=== PATIENT | male | born 1960 | race Caucasian/White ===

== ENCOUNTER 2022-12-14 01:28 | Inpatient (IN) | payer BC, OTHER, SELFPAY ==
[2022-12-14 01:41] VITALS: BP 142/70; PULSE 101; RESP 22; TEMP 36.6; O2SAT 96; BMI 40.2
--- NOTE | 2022-12-14 01:52 | ED_ITS ---
HPI - General Adult General Chief complaint: Unspecified Complaint, Adult Stated complaint: was told he is in kidney failure Time Seen by Provider: 12/14/22 01:52 History of Present Illness HPI narrative: pt just got called by PCP from yesterdays visit and told to go to ER for kidney failure. pt creat 8.03, K 5 .9. labs printed from [employer] account . pt states hes been having trouble with inctont/trouble going, swelling ankles , SOB for a while, denies CP. 61-year-old man presenting to the emergency department after being contacted middle the night by on-call provider due to labs drawn yesterday noting a creatinine of 8. Apparently this is a marked change from baseline. Potassium was also noted to be little elevated at 5.9 and hemoglobin has been drifting down and now at 9.9. Pending colonoscopy. His noted to be having some urinary incontinence in the setting of BPH. Had been experiencing some orthopnea and had an echocardiogram that apparently showed some left ventricular enlargement and an EF of 40% diagnosed with systolic heart failure and initiated on losartan and carvedilol. He is not yet picked up these prescriptions though. He was also to begin Flomax for BPH. He has not had any fever. I note him to be somewhat tachypneic and labored but apparently this is relatively chronic. Does have lower extremity edema but this is rather chronic. No noted weight changes. Is not having any chest pain. Does continue to smoke. Suspected COPD. Sounds like not formally diagnosed nor treated. Related Data Home Medications Medication Instructions Recorded Confirmed alfuzosin 10 mg tablet,extended 10 mg PO DAILY 12/14/22 12/14/22 release 24 hr aspirin 81 mg tablet,delayed 81 mg PO DAILY 12/14/22 12/14/22 release atorvastatin 20 mg tablet 20 mg PO QPM 12/14/22 12/14/22 cetirizine 10 mg tablet 10 mg PO DAILY 12/14/22 12/14/22 cholecalciferol (vitamin D3) 1,250 1,250 mcg PO 2XW 12/14/22 12/14/22 mcg (50,000 unit) capsule metformin 1,000 mg tablet 1,000 mg PO BID 12/14/22 12/14/22 Allergies Allergy/AdvReac Type Severity Reaction Status Date / Time No Known Drug Allergies Allergy Verified 12/14/22 01:46 Review of Systems Status of ROS: Reports: 6 or more systems reviewed and unremarkable except as noted in History and below [facility] Medical History Adenomatous colon polyp ?D12.6 - Benign neoplasm of colon, unspecified (ICD-10) Type 2 diabetes mellitus ?E11.9 - Type 2 diabetes mellitus without complications (ICD-10) Basal cell carcinoma (BCC) of eyebrow ?C44.319 - Basal cell carcinoma of skin of other parts of face (ICD-10) Social History Smoking Status: Current every day smoker What tobacco products do you use: cigarettes Smoking packs per day: 1 Smoking cigarettes per day: 20.0 Do you use any of these nicotine containing products: None How often do you have a drink containing alcohol: never AUDIT-C Alcohol total score: 0 Non-prescribed substance use: denies use Exam Narrative: Exam Narrative: Pleasant. Energetic. Edentulous. Large newman. Mildly labored and tachypneic. Easily conversant though. Lungs with diffuse trace end-expiratory wheezing. Heart in an elevated rate and regular rhythm. Distant. Abdomen is protuberant soft. There is in the mid abdomen where it sounds like there was a hernia repair, there is mildly tender noninflamed racquetball area sized subtle swelling. He is also little uncomfortable across the mid lower abdomen. No peritoneal signs. Other surgical evidence includes absence of umbilicus. Lower extremities with diffuse nearly 2+ pitting edema. Const: Vital Signs, click to edit/add: Vital Signs - 24 hr 12/14/22 01:41 12/14/22 02:02 12/14/22 03:29 Temperature 97.9 F Pulse Rate 97 94 Pulse Rate [Left P ulse Oximeter] 101 H Respiratory Rate 22 20 20 Blood Pressure 138/79 146/83 H Blood Pressure [Ri ght Upper Arm] 142/70 H Pulse Oximetry 96 94 96 Oxygen Delivery Me thod Room Air Documenting provider has reviewed patient's vital signs: yes Course Vital Signs Vital signs: Initial Vital Signs Temperature 97.9 F 12/14/22 01:41 Temperature Source Temporal Artery Scan 12/14/22 01:41 Pulse Rate 101 H 12/14/22 01:41 Respiratory Rate 22 12/14/22 01:41 Blood Pressure 142/70 H 12/14/22 01:41 Blood Pressure Mean 94 12/14/22 01:41 Blood Pressure Position Sitting 12/14/22 01:41 Pulse Oximetry 96 12/14/22 01:41 Oxygen Delivery Method Room Air 12/14/22 01:41 Vital Signs Temperature 97.9 F 12/14/22 01:41 Pulse Rate 101 H 12/14/22 01:41 Respiratory Rate 22 12/14/22 01:41 Blood Pressure 142/70 H 12/14/22 01:41 Pulse Oximetry 96 12/14/22 01:41 Oxygen Delivery Method Room Air 12/14/22 01:41 Temperature 97.9 F 12/14/22 01:41 Pulse Rate 94 12/14/22 03:29 Respiratory Rate 20 12/14/22 03:29 Blood Pressure 146/83 H 12/14/22 03:29 Pulse Oximetry 96 12/14/22 03:29 Oxygen Delivery Method Room Air 12/14/22 01:41 Medical Decision Making MDM Narrative Medical decision making narrative: Does appear to have some degree of heart failure exacerbation. I think it would be prudent to repeat these labs from yesterday. It sounds as though there might be some urinary obstruction with perhaps overflow incontinence. I wonder if this is backing up contributing to renal failure. I am unsure at this time what his baseline creatinine has been. It looks also like would benefit from some diuresis. I requested a bladder scan which reported more than 999 mL. Hendrickson pending. Coude placed. Indeed urine out so far is 3300 mL as of approximately 3:00 a.m.. Chest x-ray reviewed by me appears to show some mild cardiomegaly and some interstitial edema. Labs with potassium of 5.4, phosphorus 7.3, creatinine 8.7, proBNP of 9640, hemoglobin 9.7 I do not see corresponding EKG changes. Obtaining records shows a creatinine on September 26 of 2.7 and 1 year ago creatinine was 1.1 He is making urine. I requested admission from our hospitalist overnight. Thankfully accepting. Noting some low abdominal sharp cramping pain. Ordering Flomax and morphine. Lab Data Lab results reviewed: Yes I reviewed the patient's lab results Labs: Lab Results 08/24/23 08/24/23 Range/Units 02:18 02:50 WBC 4.66 (4.50-11.00) K/uL RBC 3.48 L (4.30-5.90) m/uL Hgb 9.7 L (13.5-17.5) gm/dL Hct 30.9 L (37.0-53.0) % MCV 89 (80-100) fL MCH 28 (26-34) pg MCHC 31 L (32-36) gm/dL RDW Coeff of Layla 14.2 (11.5-15.5) % Plt Count 166 (140-440) K/uL Neut % (Auto) 67.0 (42.0-72.0) % Lymph % (Auto) 19.1 L (20-44) % Cuming % (Auto) 8.6 (0.0-11.0) % Eos % (Auto) 4.7 (0.0-7.0) % Baso % (Auto) 0.4 (0.0-3.0) % Neut # (Auto) 3.12 (1.7-7.0) K/uL Lymph # (Auto) 0.90 (0.90-2.90) K/uL Cuming # (Auto) 0.40 (0.00-0.90) K/UL Eos # (Auto) 0.22 (0.00-0.50) K/uL Baso # (Auto) 0.02 (0.00-0.30) K/uL Abs Immat Gran (auto) 0.01 (0.00-0.30) K/uL Imm/Tot Granulo (auto) 0.2 % D-Dimer Quant (PE/DVT) 0.50 (0.00-0.50) ug/ml VBG pH 7.289 L (7.32-7.43) VBG pCO2 40 (40-50) mmHG VBG pO2 34.2 (25-47) mmHG VBG HCO3 19 L (21-28) mmol/L Sodium 141 (135-149) mmol/L Potassium 5.4 H (3.6-5.1) mmol/L Chloride 113 (96-114) mmol/L Carbon Dioxide 17 L (20-32) mmol/L Anion Gap 11 (7-15) mEq/L BUN 80 H (7-30) mg/dL Creatinine 8.7 H (0.5-1.5) mg/dL Estimated Creat Clear 8.80 Estimated GFR 6 ml/min Glucose 104 (60-115) mg/dL Calcium 10.2 (8.4-10.6) mg/dL Phosphorus 7.3 H* (2.5-4.5) mg/dL Magnesium 2.1 (1.5-2.6) mg/dL Total Bilirubin 0.5 (0.1-1.5) mg/dL Direct Bilirubin 0.3 (0.0-0.5) mg/dL AST 15 (12-35) U/L ALT 12 (4-50) U/L Alkaline Phosphatase 63 (40-150) U/L Troponin I 0.03 (0.01-0.04) ng/mL C-Reactive Protein 1.8 H (0.5-1.0) mg/dL NT-Pro-B Natriuret Pep 9640 pg/mL Total Protein 6.4 (6.0-8.3) g/dL Albumin 3.7 (3.3-5.0) g/dL TSH 2.050 (0.270-4.20) uIU/mL Urine Color Yellow (Yellow) Urine Appearance Clear (Clear) Urine pH 6.0 (5.0-8.5) Ur Specific [place] 1.010 (1.000-1.030) Urine Protein 1+ A (Negative) Urine Glucose (UA) Negative (Negative) Urine Ketones Negative (Negative) Urine Blood Negative (Negative) Urine Nitrite Negative (Negative) Urine Bilirubin Negative (Negative) Urine Urobilinogen 0.2 (0.2-1.0) Ur Leukocyte Esterase Negative (Negative) Urine RBC 0-2 (0-2) Urine WBC 2-5 (0-5) Ur Squamous Epith Cells Few (None-Few) Urine Bacteria Few A (None) Urine Opiates Screen Negative (Negative) Ur Oxycodone Screen Negative (Negative) Urine Methadone Screen Negative (Negative) Ur Propoxyphene Screen Negative (Negative) Ur Barbiturates Screen Negative (Negative) U Tricyclic Antidepress Negative (Negative) Ur Phencyclidine Scrn Negative (Negative) Ur Amphetamines Screen Negative (Negative) U Methamphetamines Scrn Negative (Negative) U Benzodiazepines Scrn Negative (Negative) Urine Cocaine Screen Negative (Negative) U Marijuana (THC) Screen Negative (Negative) Ur Drug Screen Comment See Note ECG Data Attestation: I personally reviewed and interpreted this ECG as follows: (EKG with perhaps a junctional rhythm. Rate of 99. No acute ischemic changes. T- wave looks to be normal certainly not enhanced. ) Discharge Plan Discharge Clinical Impression: Heart failure, Acute renal failure due to urinary obstruction Patient Disposition: Admitted As Observation Condition: Stable
[2022-12-14 02:02] VITALS: BP 138/79; PULSE 97; RESP 20; O2SAT 94
--- NOTE | 2022-12-14 02:10 | CRLHL7_ITS ---
For Patients: As a result of the Century Cures Act, medical imaging exams and procedure reports are released immediately into your electronic medical record. You may view this report before your referring provider. If you have questions, please contact your health care provider. INDICATION: Dyspnea. TECHNIQUE: Chest 1 view. COMPARISON: None. FINDINGS: Cardiovascular and mediastinum: Heart size and vasculature are normal in caliber and appearance. Lungs and pleural spaces: Central perihilar interstitial opacities, likely representing mild interstitial edema. No pleural effusions or pneumothorax. Bones and soft tissues: No significant findings. IMPRESSION: Mild interstitial edema. Dictated by Joe Zamarripa MD @ 12/14/2022 2:57:57 AM (Electronically Signed)
[2022-12-14 02:22] LABS: HCO3 VBG 19 mmol/L (21-28); PCO2 VBG 40 mmHG (40-50); PO2 VBG 34.2 mmHG (25-47); pH VBG 7.289 (7.32-7.43)
[2022-12-14 02:25] LABS: Basophils Absolute Auto 0.02 K/uL (0.00-0.30); Basophils Percent Auto 0.4 % (0.0-3.0); Eosinophils Absolute Auto 0.22 K/uL (0.00-0.50); Eosinophils Percent Auto 4.7 % (0.0-7.0); Hematocrit 30.9 % (37.0-53.0); Hemoglobin* 9.7 gm/dL (13.5-17.5); Immature Granulocytes Abs Auto 0.01 K/uL (0.00-0.30); Immature Granulocytes Pct Auto 0.2 %; Lymphocytes Percent Auto 19.1 % (20-44); Mean Corpuscular HGB Conc 31 gm/dL (32-36); Mean Corpuscular Hemoglobin 28 pg (26-34); Mean Corpuscular Volume 89 fL (80-100); Monocytes Percent Auto 8.6 % (0.0-11.0); Neutrophils Absolute Auto 3.12 K/uL (1.7-7.0); Platelet Count* 166 K/uL (140-440); RDW Coefficient of Variation % 14.2 % (11.5-15.5); Red Blood Count 3.48 m/uL (4.30-5.90); White Blood Count* 4.66 K/uL (4.50-11.00)
[2022-12-14 02:27] LABS: Slide Review Reflex No
[2022-12-14 02:39] LABS: Albumin* 3.7 g/dL (3.3-5.0); Chloride* 113 mmol/L (96-114); Sodium* 141 mmol/L (135-149)
[2022-12-14 02:40] LABS: Potassium* 5.4 mmol/L (3.6-5.1)
[2022-12-14 02:41] LABS: Creatinine* 8.7 mg/dL (0.5-1.5); Estimated Glomerular Filt Rate 6 ml/min
[2022-12-14 02:42] LABS: Alanine Aminotransferase* 12 U/L (4-50); Alkaline Phosphatase* 63 U/L (40-150); Anion Gap 11 mEq/L (7-15); Aspartate Amino Transferase* 15 U/L (12-35); Bilirubin Direct* 0.3 mg/dL (0.0-0.5); Bilirubin Total* 0.5 mg/dL (0.1-1.5); Blood Urea Nitrogen* 80 mg/dL (7-30); Carbon Dioxide* 17 mmol/L (20-32); Glucose* 104 mg/dL (60-115); Total Protein* 6.4 g/dL (6.0-8.3)
[2022-12-14 02:43] LABS: Calcium* 10.2 mg/dL (8.4-10.6); Magnesium* 2.1 mg/dL (1.5-2.6)
[2022-12-14 02:45] LABS: C Reactive Protein* 1.8 mg/dL (0.5-1.0)
[2022-12-14 02:49] LABS: Phosphorus* 7.3 mg/dL (2.5-4.5)
[2022-12-14 02:54] LABS: Appearance Urine Clear (Clear); Bilirubin Urine Negative (Negative); Blood Urine Negative (Negative); Color Urine Yellow (Yellow); Glucose Urine Negative (Negative); Ketones Urine Negative (Negative); Leukocyte Esterase Urine Negative (Negative); Nitrite Urine Negative (Negative); Protein Urine 1+ (Negative); Urobilinogen Urine 0.2 (0.2-1.0)
[2022-12-14 02:54] LABS: Troponin I* 0.03 ng/mL (0.01-0.04)
[2022-12-14 02:57] LABS: NT Pro B Type NatriureticPept* 9640 pg/mL
[2022-12-14 03:00] LABS: Bacteria Urine Few; RBC Urine 0-2 (0-2); Squamous Epithelial Cell Urine Few (None-Few)
[2022-12-14 03:03] LABS: Amphetamine Screen Urine Negative (Negative); Barbiturate Screen Urine Negative (Negative); Benzodiazepines Screen Urine Negative (Negative); Cannabinoid Screen Urine Negative (Negative); Cocaine Screen Urine Negative (Negative); Methadone Screen Urine Negative (Negative); Methamphetamines Screen Urine Negative (Negative); Opiate Screen Urine Negative (Negative); Oxycodone Screen Urine Negative (Negative); Phencyclidine Screen Urine Negative (Negative); Tricyclic Antidepressant Urine Negative (Negative)
[2022-12-14 03:29] VITALS: BP 146/83; PULSE 94; RESP 20; O2SAT 96
[2022-12-14] MEDS: TAMSULOSIN HCL 0.4 MG CAPSULE PO (03:50)
[2022-12-14] MEDS: MORPHINE 4 MG/ML INJ IVP (03:50)
--- NOTE | 2022-12-14 04:06 | ED.NURSE ---
report to ms rn, pt states pain relief and drowsiness post morphine, pt transferred via bed to room 258.
[2022-12-14 04:16] VITALS: BP 136/97; PULSE 103; RESP 22; TEMP 36.7; O2SAT 99; BMI 37.9
--- NOTE | 2022-12-14 04:26 | P.IMCN_ITS ---
Date of Consult Consult date: 12/14/22 Primary Care Provider: Tino Morales MD Consult Narrative Narrative: Wei Sawyer is a 61 year old male [facility] Medical History Adenomatous colon polyp ?D12.6 - Benign neoplasm of colon, unspecified (ICD-10) Type 2 diabetes mellitus ?E11.9 - Type 2 diabetes mellitus without complications (ICD-10) Basal cell carcinoma (BCC) of eyebrow ?C44.319 - Basal cell carcinoma of skin of other parts of face (ICD-10) Social History Smoking Status: Current every day smoker What tobacco products do you use: cigarettes Smoking packs per day: 1 Smoking cigarettes per day: 20.0 Do you use any of these nicotine containing products: None How often do you have a drink containing alcohol: never AUDIT-C Alcohol total score: 0 Non-prescribed substance use: denies use Meds Home Medications and Allergies Home Medications Medication Instructions Recorded Confirmed Type alfuzosin 10 mg tablet,extended 10 mg PO DAILY 12/14/22 12/14/22 History release 24 hr aspirin 81 mg tablet,delayed 81 mg PO DAILY 12/14/22 12/14/22 History release atorvastatin 20 mg tablet 20 mg PO QPM 12/14/22 12/14/22 History cetirizine 10 mg tablet 10 mg PO DAILY 12/14/22 12/14/22 History cholecalciferol (vitamin D3) 1,250 1,250 mcg PO 2XW 12/14/22 12/14/22 History mcg (50,000 unit) capsule metformin 1,000 mg tablet 1,000 mg PO BID 12/14/22 12/14/22 History Allergies Allergy/AdvReac Type Severity Reaction Status Date / Time No Known Drug Allergies Allergy Verified 12/14/22 01:46 Exam Const: Vital Signs, click to edit/add: Vital Signs - 24 hr 12/14/22 01:41 12/14/22 02:02 12/14/22 03:29 Temperature 97.9 F Pulse Rate 97 94 Pulse Rate [Left P ulse Oximeter] 101 H Respiratory Rate 22 20 20 Blood Pressure 138/79 146/83 H Blood Pressure [Ri ght Upper Arm] 142/70 H Pulse Oximetry 96 94 96 Oxygen Delivery Me thod Room Air Labs Labs: Short CBC 12/14/22 Range/Units 02:18 WBC 4.66 (4.50-11.00) K/uL Hgb 9.7 L (13.5-17.5) gm/dL Hct 30.9 L (37.0-53.0) % Plt Count 166 (140-440) K/uL BMP 12/14/22 02:18 Sodium 141 Potassium 5.4 H Chloride 113 Carbon Dioxide 17 L BUN 80 H Creatinine 8.7 H Glucose 104 Calcium 10.2 Cardiac Enzymes 12/14/22 Range/Units 02:18 Troponin I 0.03 (0.01-0.04) ng/mL Liver Function 12/14/22 Range/Units 02:18 Total Bilirubin 0.5 (0.1-1.5) mg/dL Direct Bilirubin 0.3 (0.0-0.5) mg/dL AST 15 (12-35) U/L ALT 12 (4-50) U/L Alkaline Phosphatase 63 (40-150) U/L Albumin 3.7 (3.3-5.0) g/dL Urine 12/14/22 Range/Units 02:50 Urine Color Yellow (Yellow) Urine Appearance Clear (Clear) Urine pH 6.0 (5.0-8.5) Ur Specific [place] 1.010 (1.000-1.030) Urine Protein 1+ A (Negative) Urine Glucose (UA) Negative (Negative) Assessment and Plan Assessment and plan (1) Acute renal failure due to urinary obstruction: Status: Acute Plan [facility] Hospitalist CONSULTATION NOTE: Reason for consult: Urinary retention, acute kidney injury HPI: Patient is a pleasant 61-year-old male who was seen in clinic earlier today and then notified at around 1 AM this morning to present to the ER for critical creatinine. He has been having trouble peeing for probably the last month or so but especially over the last week and a half. He does have some pain when he does urinate. He has not had fevers or chills. He has not noticed any blood in his urine. He has had some lower pelvic and abdominal pain at times. He denies any nausea or vomiting. He has had constipation but no diarrhea. He has not had any chest pain or shortness of breath. Denies any headaches or lightheadedness. Patient is an active smoker smoking about a pack a day. He does drink alcohol but has not been drinking recently. He will use marijuana on occasion but no other recreational drugs. We discussed CODE STATUS and he wishes to be a full code. Exam (performed via interactive video with assistance of bedside nurse): General: Alert, cooperative, no acute distress HEENT: Pupils reported ERRL, oral mucosa pink and moist without erythema Lungs: Clear to auscultation bilaterally without crackle or wheeze CV: Regular rate and rhythm without loud murmur rub or gallop Abd: Denies tenderness and does not exhibit signs of pain with palpation done by bedside nurse Ext: +3 pitting edema bilateral lower extremities Skin: No rashes, bruises or lesions appreciated on gross visualization of exposed skin Past medical, surgical and social history reviewed in EMR. Assessment and Plan: 1. Obstructive uropathy Patient is a pleasant 61-year-old male admitted for obstructive uropathy. He had quite a acute kidney injury secondary to this. Hendrickson was placed which we will continue. We will recheck his labs later on this morning. If his creatinine is not responding to Hendrickson and fluids he received in the ER, then a transfer to higher level of care could be considered. He will also need urology consultation as an outpatient regardless. As needed medications have been placed for pain and nausea. His chronic outpatient medications will be restarted as appropriate when fully verified. Heparin is placed for DVT prophylaxis. Patient is a full code. Thank you for including Tom Mckeon in the patients care. This service is available for further assistance as requested by your care team by calling [phone].
--- NOTE | 2022-12-14 05:36 | PC.NURSE ---
Pt arrived to unit approx 0410, admission completed, herrera in place, patent and draining, hematuria present with small clots. Pt denies any pain, does acknowledge some discomfort to lower abdomen. Pt states approx 1 month hx of SOB at rest and with activity and difficulty urinating, pleasant and cooperative, pt currently sleeping.
[2022-12-14] MEDS: ACETAMINOPHEN 325 MG TABLET PO (06:41)
[2022-12-14] MEDS: LORazepam 0.5 MG TABLET PO (06:41)
[2022-12-14 07:00] VITALS: BP 157/81; PULSE 100; RESP 22; TEMP 35.7; O2SAT 94
--- NOTE | 2022-12-14 07:47 | CRLHL7_ITS ---
For Patients: As a result of the 21st Century Cures Act, medical imaging exams and procedure reports are released immediately into your electronic medical record. You may view this report before your referring provider. If you have questions, please contact your health care provider. INDICATION: Acute renal failure. Urinary obstruction. Heart failure appearance COMPARISON: An abdomen and pelvis CT dated September 28, 2018. There are no prior chest CT TECHNIQUE: CT examination of the chest, abdomen and pelvis was performed without intravenous contrast. Thin section axial images were obtained from the thoracic inlet through the pubic symphysis. Oral contrast was not administered. Sagittal and coronal reformatted imaging was performed. Please note that all CT scans at this facility use dose modulation, iterative reconstruction, and/or weight-based dosing when appropriate to reduce radiation dose to as low as reasonably achievable. FINDINGS: CHEST: The heart is mildly enlarged. There are prominent mediastinal lymph nodes. These are probably reactive and may be reactive to heart failure. However, I recommend follow-up evaluation to ensure that these reverted to normal size. No pericardial effusion. The lungs show mild thickening of the interlobular septa especially at the apices and bases. There is also minimal basilar atelectasis, right greater than left and a tiny right effusion. The prominent septal lines are probably related to minimal interstitial edema. No alveolar edema. ABDOMEN AND PELVIS: LIVER/BILIARY SYSTEM:The liver is normal in size and configuration given the lack of intravenous contrast. There is no visible focal mass and there is no intra- or extra hepatic biliary ductal dilatation.Steatosis. Normal appearing gallbladder. ADRENALS: Normal non-contrast appearance KIDNEYS, URETERS and BLADDER:Normal size kidneys. Marked dilation of the renal pelves and ureters. There is a Hendrickson catheter in the bladder and the bladder wall is markedly thickened and there are calcifications in the wall, probably stones within small diverticula. This pattern of hydronephrosis is probably due to recent relief of severe longstanding obstructive uropathy at the level of the bladder outlet. Further evaluation is recommended regarding the bladder wall thickening. The hydronephrosis and hydroureter is new since the prior study SPLEEN:Mildly enlarged PANCREAS: Normal non-contrast appearance. RETROPERITONEUM and MESENTERY: There is no mass, adenopathy or aortic aneurysm. Atherosclerotic vascular calcific GASTROINTESTINAL SYSTEM: There is no evidence of diverticulitis, colitis, mechanical obstruction, or appendicitis. The small bowel as visualized appears normal.Scattered diverticulosis and mild fecal retention PELVIS: Abnormal bladder as mentioned above. Moderately enlarged prostate. OSSEOUS STRUCTURES and ABDOMINAL WALL: No acute osseous findings. No acute abdominal wall abnormality appearance OTHER: No free fluid or free air. IMPRESSION: 1. CHEST: Minimal prominence of interlobular septa probably representing mild interstitial edema. Minimal basilar atelectasis and very small right effusion. Prominent mediastinal lymph nodes presumably reactive to edema though follow-up evaluation recommended to ensure these returned to normal size 2. ABDOMEN AND PELVIS: Significant bilateral hydronephrosis and hydroureter to the level of the bladder. Marked bladder wall thickening. Hendrickson catheter ending in the bladder. Please review the comments regarding the urinary system. Other nonacute appearing findings as above Please note that all CT scans at this facility use dose modulation, iterative reconstruction, and/or weight-based dosing when appropriate to reduce radiation dose to as low as reasonably achievable. Dictated by Gualberto Blair MD @ 12/14/2022 9:06:07 AM (Electronically Signed)
--- NOTE | 2022-12-14 07:52 | PM.IMHP1 ---
Hospitalist- H&P: HPI History of Present Illness Date Seen: 12/14/22 Chief complaint: was told he is in kidney failure Narrative: ADMISSION HISTORY AND PHYSICAL - HOSPITALIST Chief Complaint: Nothing. My doctor called and told me to go to the emergency room. HPI: 61-year-old patient with a history of diabetes, hypertension, seasonal allergies, hyperlipidemia presents to our emergency room after a phone call with his PCP, Dr. Morales. The patient had been in the day prior concerned about urinary leakage and lower abdominal pain. labs that returned after he left: ARF elevated potassium acidosis anemia -thus he was called to present to the ED for further eval ROS: He does state he's had vague abdominal fullness, leaking urine (worse at night), fatigue. no fever, chest pain, or SOB. ER COURSE: creat confirmed >8 mildly acidotic decompressed bladder (3L urinary retention) moderate anemia mild hyperkalemia admitted with draining herrera CODE STATUS: FULL CODE EMERGENCY CONTACT PLAN: significant other Quyen. I've updated the PFSH, medications and allergies in the Expanse tabs. INVESTIGATIONS: LABS/MICRO/ECG/IMAGING -see expanse tabs Final Impressions: 1. Mildly increased left ventricular size, mildly increased wall thickness, mildly reduced global systolic function, calculated EF of 42 %. 2. Mid and distal anterior wall and mid and distal anterior septum are abnormal. 3. Mild biatrial enlargement 4. The mitral valve is normal, mild mitral regurgitation. 5. Moderately increased estimated pulmonary pressures by tricuspid regurgitation velocity and right atrial pressure (48 mmHg plus RAP). REVIEW OF SYSTEMS: 12-point ROS completed with patient and negative unless otherwise stated in HPI or below. PHYSICAL EXAM: CONSTITUTIONAL: Stoic, quiet. no signficant distress. VITAL SIGNS: see record. HEENT: Normocephalic, atraumatic. PERRL, EOMI, conjunctivae pink, no scleral icterus. Ears and nose externally normal. Pharynx normal. NECK: No JVD. No carotid bruit, no thyromegaly, no adenopathy. CHEST: Clear to auscultation bilaterally HEART: S1 and S2 normal. No harsh murmurs. Edema MUSCULOSKELETAL: No gross joint deformity or swelling. NEURO: Cranial nerves intact. Grossly intact. No asymmetric findings. SKIN: No rashes, petechiae, concerning changes PSYCHIATRIC: Euthymic. ADMIT TO MEDSURG: FLOOR CARE DVT: Lovenox GI: PO intake, renal diet Time spent: Today I spent 75 minutes seeing the patient, discussing the patient with ER staff, reviewing Expanse and EPIC notes/diagnostics, discussing the care plan with our care time that includes social work, PT/OT, pharmacy, RT, assisted and documenting my impressions and plan in the medical record. Echo 12/13 [facility] Medical History (Updated 12/14/22 @ 13:28 by Zahida Kamara MD) HFimpEF, currently with mildly reduced EF ?I50.22 - Chronic systolic (congestive) heart failure (ICD-10) Adenomatous colon polyp ?D12.6 - Benign neoplasm of colon, unspecified (ICD-10) Type 2 diabetes mellitus ?E11.9 - Type 2 diabetes mellitus without complications (ICD-10) Basal cell carcinoma (BCC) of eyebrow ?C44.319 - Basal cell carcinoma of skin of other parts of face (ICD-10) Social History What is your current living situation?: I presently have a place to live Problems where you live: no known problems Problems where you live details: N/A In the past 12 months, utilities in danger of being shut off: no In the past 12 mos, have been you worried that your food would run out before you had money to buy more?: never true In the past 12 mos, the food you bought just didn't last and you didn't have money to buy more?: never true Smoking Status: Current every day smoker What tobacco products do you use: cigarettes Smoking packs per day: 1 Smoking cigarettes per day: 20.0 Do you use any of these nicotine containing products: None How often do you have a drink containing alcohol: never AUDIT-C Alcohol total score: 0 Non-prescribed substance use: denies use Caffeine: Yes (pepsi) How often does anyone, including family, friends and others, physically hurt you: never How often does anyone, including family, friends and others, insult or talk down to you: never How often does anyone, including family, friends and others, threaten you with harm: never How often does anyone, including family, friends and others, scream or curse at you: rarely service: No Meds Home Medications and Allergies Home Medications Medication Instructions Recorded Confirmed Type albuterol sulfate 90 mcg/actuation 1 - 2 puff inhalation Q4H PRN 12/14/22 12/14/22 History aerosol inhaler (Ventolin HFA) alfuzosin 10 mg tablet,extended 10 mg PO DAILY 12/14/22 12/14/22 History release 24 hr aspirin 81 mg tablet,delayed 81 mg PO DAILY 12/14/22 12/14/22 History release atorvastatin 20 mg tablet 20 mg PO HS 12/14/22 12/14/22 History carvedilol 6.25 mg tablet 6.25 mg PO BID 12/14/22 12/14/22 History cetirizine 10 mg tablet 10 mg PO DAILY 12/14/22 12/14/22 History cholecalciferol (vitamin D3) 1,250 1,250 mcg PO .MO,TH@09 12/14/22 12/14/22 History mcg (50,000 unit) capsule fluticasone propionate 50 1 spray intranasal BID PRN 12/14/22 12/14/22 History mcg/actuation nasal spray,suspension (24 Hour Allergy Relief) losartan 25 mg tablet 25 mg PO DAILY 12/14/22 12/14/22 History metformin 1,000 mg tablet 1,000 mg PO BIDWM 12/14/22 12/14/22 History polyethylene glycol 3350 17 17 g PO DAILY 12/14/22 12/14/22 History gram/dose oral powder (ClearLax) tamsulosin 0.4 mg capsule (Flomax) 0.4 mg PO DAILY 12/14/22 12/14/22 History Allergies Allergy/AdvReac Type Severity Reaction Status Date / Time No Known Drug Allergies Allergy Verified 12/14/22 01:46 Exam Const: Vital Signs, click to edit/add: Vital Signs - 24 hr 12/14/22 01:41 12/14/22 02:02 12/14/22 03:29 Temperature 97.9 F Pulse Rate 97 94 Pulse Rate [Left P ulse Oximeter] 101 H Pulse Rate [Pulse Oximeter] Respiratory Rate 22 20 20 Blood Pressure 138/79 146/83 H Blood Pressure [Ri ght Arm] Blood Pressure [Ri ght Upper Arm] 142/70 H Pulse Oximetry 96 94 96 Oxygen Delivery Me thod Room Air 12/14/22 04:16 12/14/22 04:16 Temperature 98.1 F Pulse Rate Pulse Rate [Left P ulse Oximeter] Pulse Rate [Pulse Oximeter] 103 H Respiratory Rate 22 22 Blood Pressure Blood Pressure [Ri ght Arm] 136/97 H Blood Pressure [Ri ght Upper Arm] Pulse Oximetry 99 99 Oxygen Delivery Me thod Room Air Room Air Hospitalist - H&P: Result Labs Labs: Short CBC 12/14/22 Range/Units 02:18 WBC 4.66 (4.50-11.00) K/uL Hgb 9.7 L (13.5-17.5) gm/dL Hct 30.9 L (37.0-53.0) % Plt Count 166 (140-440) K/uL BMP 12/14/22 02:18 Sodium 141 Potassium 5.4 H Chloride 113 Carbon Dioxide 17 L BUN 80 H Creatinine 8.7 H Glucose 104 Calcium 10.2 Cardiac Enzymes 12/14/22 Range/Units 02:18 Troponin I 0.03 (0.01-0.04) ng/mL Liver Function 12/14/22 Range/Units 02:18 Total Bilirubin 0.5 (0.1-1.5) mg/dL Direct Bilirubin 0.3 (0.0-0.5) mg/dL AST 15 (12-35) U/L ALT 12 (4-50) U/L Alkaline Phosphatase 63 (40-150) U/L Albumin 3.7 (3.3-5.0) g/dL Urine 12/14/22 Range/Units 02:50 Urine Color Yellow (Yellow) Urine Appearance Clear (Clear) Urine pH 6.0 (5.0-8.5) Ur Specific [place] 1.010 (1.000-1.030) Urine Protein 1+ A (Negative) Urine Glucose (UA) Negative (Negative) Assessment and Plan Assessment and plan (1) Acute renal failure due to urinary obstruction: Problem comment: creat 8.4 - worsening to 8.9 despite decompression will start ceftriaxone, [id number]. Sheila discussed with [place] [facility] - agrees for transfer but no beds [facility] - accepted care Status: Acute (2) Acute bilateral obstructive uropathy: Problem comment: herrera in place gross hematuria (likely from recent decompression) no CBI no stone noted on imaging ceftriaxone dosed Status: Acute (3) HFimpEF, currently with mildly reduced EF: Problem comment: EF 40% workup was just started in the last two clinic appts. has had echo, no stress testing, no cards appts started on losartan and coreg evolumic currently Status: Acute (4) Type 2 diabetes mellitus: Problem comment: A1C 7.1 Status: Acute
[2022-12-14 08:23] LABS: Basophils Absolute Auto 0.03 K/uL (0.00-0.30); Basophils Percent Auto 0.5 % (0.0-3.0); Eosinophils Percent Auto 3.6 % (0.0-7.0); Hematocrit 32.1 % (37.0-53.0); Hemoglobin* 9.9 gm/dL (13.5-17.5); Immature Reticulocyte Fraction 6.5 % (2.3-13.4); Lymphocytes Percent Auto 15.6 % (20-44); Mean Corpuscular HGB Conc 31 gm/dL (32-36); Mean Corpuscular Hemoglobin 28 pg (26-34); Mean Corpuscular Volume 90 fL (80-100); Monocytes Percent Auto 7.4 % (0.0-11.0); Neutrophils Percent Auto 72.9 % (42.0-72.0); Platelet Count* 187 K/uL (140-440); RDW Coefficient of Variation % 14.4 % (11.5-15.5); Red Blood Count 3.58 m/uL (4.30-5.90); Reticulocyte Hemoglobin Equivi 26.6 pg (29.0-35.0); Reticulocytes Absolute 0.04 # (0.03-0.08); White Blood Count* 5.57 K/uL (4.50-11.00)
[2022-12-14 08:24] LABS: Slide Review Reflex No
[2022-12-14 08:39] LABS: HCO3 VBG 20 mmol/L (21-28); Ionized Calcium* 1.35 mmol/L (1.11-1.30); PCO2 VBG 45 mmHG (40-50); PO2 VBG 26.9 mmHG (25-47)
[2022-12-14 08:42] LABS: INR 1.09 (0.91-1.10); Prothrombin Time 14.7 Seconds
[2022-12-14 08:43] LABS: pH VBG 7.248 (7.32-7.43)
[2022-12-14 09:29] LABS: Albumin* 3.8 g/dL (3.3-5.0); Chloride* 113 mmol/L (96-114); Potassium* 5.8 mmol/L (3.6-5.1); Sodium* 142 mmol/L (135-149)
[2022-12-14 09:32] LABS: Alanine Aminotransferase* 10 U/L (4-50); Alkaline Phosphatase* 68 U/L (40-150); Anion Gap 13 mEq/L (7-15); Aspartate Amino Transferase* 14 U/L (12-35); Bilirubin Total* 0.4 mg/dL (0.1-1.5); Blood Urea Nitrogen* 77 mg/dL (7-30); Carbon Dioxide* 16 mmol/L (20-32); Creatinine* 8.9 mg/dL (0.5-1.5); Est. Creatinine Clearance* 8.61; Estimated Glomerular Filt Rate 6 ml/min; Gamma Glutamyl Transpeptidase* 27 U/L (8-55); Glucose* 89 mg/dL (60-115); Total Protein* 6.6 g/dL (6.0-8.3)
[2022-12-14 09:36] LABS: Iron* 43 ug/dL (49-181)
[2022-12-14] MEDS: cefTRIAXone 1 GM in 0.9 % SODIUM CHLORIDE Mini-bag 100 ML IVPB (09:41)
[2022-12-14] MEDS: SODIUM CHLORIDE 0.9 % (FLUSH) 10 ML SYRINGE 5 ML IVF (09:42)
[2022-12-14 09:44] LABS: Troponin I* 0.03 ng/mL (0.01-0.04)
[2022-12-14 09:45] LABS: Percent Iron Saturation 15 % (20-50); Total Iron Binding Capacity 294 ug/dL (261-462)
[2022-12-14 11:00] VITALS: BP 148/78; PULSE 94; RESP 22; TEMP 35.9; O2SAT 89
--- NOTE | 2022-12-14 12:57 | PC.NURSE ---
Nurse to Nurse report given to RN at [facility] in [place]. Patient is needing a higher level of care for his kidneys. All questions have been answered and currently arranging transport.
[2022-12-14] MEDS: SODIUM ZIRCONIUM CYCLOSILICATE 10 GM PO (13:29)
--- NOTE | 2022-12-14 13:31 | P.DS_ITS ---
DS: Providers Provider Date Seen: 12/14/22 Date of admission: 12/14/22 09:09 Primary care physician: Tino Morales MD Admitting Clinician: Dimitry Aldridge MD Attending Physician on discharge: Dimitry Aldridge MD Date of Discharge: 12/14/22 DS: Diagnosis Discharge Diagnosis (1) Acute bilateral obstructive uropathy: Status: Acute Problem details: herrera in place gross hematuria (likely from recent decompression) no CBI no stone noted on imaging ceftriaxone dosed (2) Acute renal failure due to urinary obstruction: Status: Acute Problem details: creat 8.4 - worsening to 8.9 despite decompression will start ceftriaxone, [id number]. Lokelma discussed with [place] [facility] - agrees for transfer but no beds [facility] - accepted care (3) HFimpEF, currently with mildly reduced EF: Status: Acute Problem details: EF 40% workup was just started in the last two clinic appts. has had echo, no stress testing, no cards appts started on losartan and coreg evolumic currently (4) Type 2 diabetes mellitus: Status: Acute Problem details: A1C 7.1 DS: Summary Hospital Course Hospital Course: See H&P. Patient was only admitted for a few hours before need for transfer was identified. Principal reason is continued acute renal failure despite bladder decompression. Hyperkalemia, metabolic acidosis, chronic subacute anemia all identified as worsening. Patient is in need of dialysis, Nephrology, Urology and none these 3 services are available at [facility]. Time spent discussing smoking cessation with patient: more than 10 minutes Status at Discharge Functional status at discharge: wheelchair bound Overall status at discharge: patient is not back to baseline Time Spent with Patient Time attestation: Total time spent providing and/or coordinating discharge services: Time spent: Greater than 30 minutes Exam Const: Vital Signs, click to edit/add: Vital Signs - 24 hr 12/14/22 01:41 12/14/22 02:02 12/14/22 03:29 Temperature 97.9 F Pulse Rate 97 94 Pulse Rate [Left P ulse Oximeter] 101 H Pulse Rate [Pulse Oximeter] Respiratory Rate 22 20 20 Blood Pressure 138/79 146/83 H Blood Pressure [Ri ght Arm] Blood Pressure [Ri ght Upper Arm] 142/70 H Pulse Oximetry 96 94 96 Oxygen Delivery Me thod Room Air 12/14/22 04:16 12/14/22 04:16 12/14/22 07:00 Temperature 98.1 F 96.3 F L Pulse Rate Pulse Rate [Left P ulse Oximeter] Pulse Rate [Pulse Oximeter] 103 H 100 Respiratory Rate 22 22 22 Blood Pressure Blood Pressure [Ri ght Arm] 136/97 H 157/81 H Blood Pressure [Ri ght Upper Arm] Pulse Oximetry 99 99 94 Oxygen Delivery Me thod Room Air Room Air Room Air 12/14/22 11:00 Temperature 96.7 F L Pulse Rate Pulse Rate [Left P ulse Oximeter] Pulse Rate [Pulse Oximeter] 94 Respiratory Rate 22 Blood Pressure Blood Pressure [Ri ght Arm] 148/78 H Blood Pressure [Ri ght Upper Arm] Pulse Oximetry 89 Oxygen Delivery Me thod Room Air DS: Data Data Completed and Pending Labs on day of discharge: Labs from last 24 hours 12/14/22 12/14/22 12/14/22 12:57 08:08 02:50 WBC 5.57 RBC 3.58 L Hgb 9.9 L Hct 32.1 L MCV 90 MCH 28 MCHC 31 L RDW Coeff of Layla 14.4 Plt Count 187 Neut % (Auto) 72.9 H Lymph % (Auto) 15.6 L [place] % (Auto) 7.4 Eos % (Auto) 3.6 Baso % (Auto) 0.5 Neut # (Auto) 4.10 Lymph # (Auto) 0.90 [place] # (Auto) 0.40 Eos # (Auto) 0.20 Baso # (Auto) 0.03 Abs Immat Gran (auto) 0.00 Imm/Tot Granulo (auto) 0.0 Absolute Retic 0.04 Percent Retic 1.0 Immature Retic Fraction 6.5 Retic Hgb Equivalent 26.6 L INR 1.09 D-Dimer Quant (PE/DVT) VBG pH 7.248 L* VBG pCO2 45 VBG pO2 26.9 VBG HCO3 20 L Sodium 142 Potassium 5.8 H Chloride 113 Carbon Dioxide 16 L Anion Gap 13 BUN 77 H Creatinine 8.9 H Estimated Creat Clear 8.61 Estimated GFR 6 Glucose 89 Calcium Ionized Calcium Jhoana 1.35 H Phosphorus 7.0 H* Magnesium 2.0 Iron 43 L TIBC 294 % Saturation 15 L Ferritin 132.0 Total Bilirubin 0.4 Direct Bilirubin GGT 27 AST 14 ALT 10 Alkaline Phosphatase 68 Troponin I 0.03 C-Reactive Protein NT-Pro-B Natriuret Pep Total Protein 6.6 Albumin 3.8 PSA Screen Pending TSH 2.640 Urine Color Yellow Urine Appearance Clear Urine pH 6.0 Ur Specific [place] 1.010 Urine Protein 1+ A Urine Glucose (UA) Negative Urine Ketones Negative Urine Blood Negative Urine Nitrite Negative Urine Bilirubin Negative Urine Urobilinogen 0.2 Ur Leukocyte Esterase Negative Urine RBC 0-2 Urine WBC 2-5 Ur Squamous Epith Cells Few Urine Bacteria Few A Urine Opiates Screen Negative Ur Oxycodone Screen Negative Urine Methadone Screen Negative Ur Propoxyphene Screen Negative Ur Barbiturates Screen Negative U Tricyclic Antidepress Negative Ur Phencyclidine Scrn Negative Ur Amphetamines Screen Negative U Methamphetamines Scrn Negative U Benzodiazepines Scrn Negative Urine Cocaine Screen Negative U Marijuana (THC) Screen Negative Ur Drug Screen Comment See Note Lab Acknowledgement Test Added 12/14/22 02:18 WBC 4.66 RBC 3.48 L Hgb 9.7 L Hct 30.9 L MCV 89 MCH 28 MCHC 31 L RDW Coeff of Layla 14.2 Plt Count 166 Neut % (Auto) 67.0 Lymph % (Auto) 19.1 L [place] % (Auto) 8.6 Eos % (Auto) 4.7 Baso % (Auto) 0.4 Neut # (Auto) 3.12 Lymph # (Auto) 0.90 [place] # (Auto) 0.40 Eos # (Auto) 0.22 Baso # (Auto) 0.02 Abs Immat Gran (auto) 0.01 Imm/Tot Granulo (auto) 0.2 Absolute Retic Percent Retic Immature Retic Fraction Retic Hgb Equivalent INR D-Dimer Quant (PE/DVT) 0.50 VBG pH 7.289 L VBG pCO2 40 VBG pO2 34.2 VBG HCO3 19 L Sodium 141 Potassium 5.4 H Chloride 113 Carbon Dioxide 17 L Anion Gap 11 BUN 80 H Creatinine 8.7 H Estimated Creat Clear 8.80 Estimated GFR 6 Glucose 104 Calcium 10.2 Ionized Calcium Jhoana Phosphorus 7.3 H* Magnesium 2.1 Iron TIBC % Saturation Ferritin Total Bilirubin 0.5 Direct Bilirubin 0.3 GGT AST 15 ALT 12 Alkaline Phosphatase 63 Troponin I 0.03 C-Reactive Protein 1.8 H NT-Pro-B Natriuret Pep 9640 Total Protein 6.4 Albumin 3.7 PSA Screen TSH 2.050 Urine Color Urine Appearance Urine pH Ur Specific [place] Urine Protein Urine Glucose (UA) Urine Ketones Urine Blood Urine Nitrite Urine Bilirubin Urine Urobilinogen Ur Leukocyte Esterase Urine RBC Urine WBC Ur Squamous Epith Cells Urine Bacteria Urine Opiates Screen Ur Oxycodone Screen Urine Methadone Screen Ur Propoxyphene Screen Ur Barbiturates Screen U Tricyclic Antidepress Ur Phencyclidine Scrn Ur Amphetamines Screen U Methamphetamines Scrn U Benzodiazepines Scrn Urine Cocaine Screen U Marijuana (THC) Screen Ur Drug Screen Comment Lab Acknowledgement Preliminary micro results at discharge 12/14/22 Unknown Urine Culture - Preliminary Urine,Clean Catch Culture in Progress Discharge Plan [facility]charge [facility]position: [facility] Date of Admission: 12/14/22 09:09 Attending Provider on Discharge: Zahida Kamara Primary Care Provider: Tino Morales Condition: Stable Oxygen: Yes Oxygen Delivery Method: Nasal Cannula Oxygen Flow Rate: 1-4Liters Urinary Catheter: Yes Drips/Lines: [id number] at 150cc/hr Services not available here: Dialysis, Nephrology, Urology
[2022-12-14 13:46] LABS: PSA Screen* 6.17 ng/mL (0.10-4.00)
[2022-12-14] MEDS: MORPHINE 2 MG/ML inj IVP (14:06)
--- NOTE | 2022-12-14 14:13 | PC.NURSE ---
Transfer Note: Patient has been transferred to [facility] in [place]. [facility] was here report given as patient is needing possible dialysis, nephrology, urology. His family was present for the transfer. They were concerned that he was being transferred so far away. Has been explained to them that we did attempt to find a bed closer to [place] but unfortunately the only available bed was there. Family was concerned that he had not eaten anything all day. Did explain to them that he had breakfast was sleeping during lunch. Order something from kitchen to send with him in case he gets hungry. All questions have been answered.
[2022-12-15 22:15] LABS: Calcium* 10.1 mg/dL (8.4-10.6)
== END 2022-12-14 14:18 | disposition short-term general hospital (02) | DRG 460 ==
LOC: ED 03:29 → MEDSURG 03:45
PROVIDERS: Admitting Provider Family Medicine; Emergency Provider Family Medicine; PCP Family Medicine; Visit Provider Family Medicine
DX: N17.9 Acute kidney failure, unspecified (principal); N13.9 Obstructive and reflux uropathy, unspecified; N40.1 Benign prostatic hyperplasia with lower urinary tract symptoms; N39.498 Other specified urinary incontinence; I11.0 Hypertensive heart disease with heart failure; I50.22 Chronic systolic (congestive) heart failure; E11.9 Type 2 diabetes mellitus without complications; F17.210 Nicotine dependence, cigarettes, uncomplicated; E87.5 Hyperkalemia; E87.20 Acidosis, unspecified; D64.9 Anemia, unspecified; E78.5 Hyperlipidemia, unspecified; Z85.828 Personal history of other malignant neoplasm of skin; R31.0 Gross hematuria
CPT/HCPCS: 36415; 51701; 71045; 71250; 74176; 80048; 80053; 80076; 80306; 81001; 82330; 82728; 82803; 82962; 82977; 83540; 83550; 83735; 83880; 84100; 84153; 84443; 84484; 85025; 85045; 85379; 85610; 86140; 87040; 87086; 93005; 99284; 99285; A9270; G0378; J0696; J2270; J7070

== ENCOUNTER 2022-12-14 14:14 | Outpatient (CLI) | payer BC, SELFPAY | END 2022-12-14 14:15 | disposition home or self-care (01) | LOC: AMB 12-17 23:49 | PROVIDERS: PCP Family Medicine; Visit Provider Family Medicine | DX: N13.9 Obstructive and reflux uropathy, unspecified (principal); N17.9 Acute kidney failure, unspecified; I50.22 Chronic systolic (congestive) heart failure | CPT/HCPCS: A0425; A0426 ==

== ENCOUNTER 2023-04-22 09:38 | Emergency (ER) | payer BC, OTHER, SELFPAY ==
[2023-04-22 09:50] VITALS: BP 145/72; PULSE 84; RESP 18; TEMP 36.7; O2SAT 95; BMI 40.6
--- NOTE | 2023-04-22 10:06 | ED_ITS ---
HPI - Male Genitourinary General Time Seen by Provider: 10:07 Date Seen: 04/22/23 Chief complaint: Urogenital Problems, Male Stated complaint: Bleeding from catheter Time Seen by Provider: 04/22/23 10:06 Source: patient, RN notes reviewed and old records reviewed Mode of arrival: ambulatory Limitations: no limitations History of Present Illness HPI Narrative: Wei is a very pleasant 62-year-old gentleman with a history of obstructive uropathy, indwelling catheter who comes to the emergency room with complaints of hematuria. Patient notes that over the past few days he has had bright red blood in his leg bag. He notes today that is actually better. He has not noticed any clotting, has not had any fevers, has not had any vomiting or nausea. He does note that he has had some mild discomfort in his lower abdomen that he blames on going to [facility] yesterday. He does agree that a few times he is accidentally caught the catheter but notes no significant injury. Wei is scheduled for prostate surgery on SundayApril 24 at [facility]. He is not currently on any antibiotics. Catheter was placed on December 13 when he presented to the emergency room with a creatinine greater than 8, bladder scan greater than 1 L and a potassium of 5.9. Patient notes that he has had improvement in his creatinine but we do not have recent value in our system. Related Data Home Medications Medication Instructions Recorded Confirmed albuterol sulfate 90 mcg/actuation 1 - 2 puff inhalation Q4H PRN 12/14/22 12/14/22 aerosol inhaler (Ventolin HFA) alfuzosin 10 mg tablet,extended 10 mg PO DAILY 12/14/22 12/14/22 release 24 hr aspirin 81 mg tablet,delayed 81 mg PO DAILY 12/14/22 12/14/22 release atorvastatin 20 mg tablet 20 mg PO HS 12/14/22 12/14/22 carvedilol 6.25 mg tablet 6.25 mg PO BID 12/14/22 12/14/22 cetirizine 10 mg tablet 10 mg PO DAILY 12/14/22 12/14/22 cholecalciferol (vitamin D3) 1,250 1,250 mcg PO .,@12/14/22 12/14/22 mcg (50,000 unit) capsule fluticasone propionate 50 1 spray intranasal BID PRN 12/14/22 12/14/22 mcg/actuation nasal spray,suspension (24 Hour Allergy Relief) losartan 25 mg tablet 25 mg PO DAILY 12/14/22 12/14/22 metformin 1,000 mg tablet 1,000 mg PO BIDWM 12/14/22 12/14/22 polyethylene glycol 3350 17 17 g PO DAILY 12/14/22 12/14/22 gram/dose oral powder (ClearLax) tamsulosin 0.4 mg capsule (Flomax) 0.4 mg PO DAILY 12/14/22 12/14/22 Previous Rx's Medication Instructions Recorded cephalexin 500 mg capsule 500 mg PO BID 7 days #14 caps 04/22/23 Allergies Allergy/AdvReac Type Severity Reaction Status Date / Time No Known Drug Allergies Allergy Verified 12/14/22 01:46 Review of Systems Status of ROS: Reports: 10 or more systems reviewed and unremarkable except as noted in History and below Const: Denies: fever or chills ENMT: Denies: neck pain Cardio: Denies: chest pain or shortness of breath with exertion Resp: Denies: shortness of breath GI: Reports: abdominal pain; Denies: nausea, vomiting or diarrhea : Reports: blood in urine Musculo: Denies: back pain or neck pain Integ/Breast: Denies: rash or redness Neuro: Denies: headache PFSH PFSH Medical History HFimpEF, currently with mildly reduced EF ?I50.22 - Chronic systolic (congestive) heart failure (ICD-10) Adenomatous colon polyp ?D12.6 - Benign neoplasm of colon, unspecified (ICD-10) Type 2 diabetes mellitus ?E11.9 - Type 2 diabetes mellitus without complications (ICD-10) Basal cell carcinoma (BCC) of eyebrow ?C44.319 - Basal cell carcinoma of skin of other parts of face (ICD-10) Social History What is your current living situation?: I presently have a place to live Problems where you live: no known problems Problems where you live details: N/A In the past 12 months, utilities in danger of being shut off: no In past 12 months, lack of transportation kept you from medical appts, meetings, work, or getting things needed for daily living: no In the past 12 mos, have been you worried that your food would run out before you had money to buy more?: never true In the past 12 mos, the food you bought just didn't last and you didn't have money to buy more?: never true Smoking Status: Current every day smoker What tobacco products do you use: cigarettes Smoking packs per day: 1 Smoking cigarettes per day: 20.0 Do you use any of these nicotine containing products: None How often do you have a drink containing alcohol: never AUDIT-C Alcohol total score: 0 Non-prescribed substance use: denies use Caffeine: Yes (pepsi) How often does anyone, including family, friends and others, physically hurt you : never How often does anyone, including family, friends and others, insult or talk down to you: never How often does anyone, including family, friends and others, threaten you with harm: never How often does anyone, including family, friends and others, scream or curse at you: rarely service: No Exam Narrative: Exam Narrative: Alert and oriented. Nontoxic in appearance. Heavy smell of tobacco in the room. Face symmetrical. Heart with regular rate and rhythm and lungs are clear. Abdomen is obese soft nontender. Examination of the leg bag shows normal colored urine per my opinion. Moving all extremities. Const: Vital Signs, click to edit/add: Vital Signs - 24 hr 04/22/23 09:50 Temperature 98.1 F Pulse Rate [Pulse Oximeter] 84 Respiratory Rate 18 Blood Pressure [Ri ght Upper Arm] 145/72 H Pulse Oximetry 95 Oxygen Delivery Me thod Room Air Documenting provider has reviewed patient's vital signs: yes Course Course ED Course: Differential diagnosis includes but is not limited to UTI, penile injury, prostate injury, At this time will obtain UA as well as bladder scan. Reevaluation(s) Reevaluation #1: Wei seems fairly anxious to go. Bladder scan showed no evidence of urinary retention. Urinalysis of course showed white and red cells but challenging to interpret in the setting of chronic indwelling catheter. Will speak to Urology. Vital Signs Vital signs: Initial Vital Signs Temperature 98.1 F 04/22/23 09:50 Temperature Source Temporal Artery Scan 04/22/23 09:50 Pulse Rate 84 04/22/23 09:50 Respiratory Rate 18 04/22/23 09:50 Blood Pressure 145/72 H 04/22/23 09:50 Blood Pressure Mean 96 04/22/23 09:50 Pulse Oximetry 95 04/22/23 09:50 Oxygen Delivery Method Room Air 04/22/23 09:50 Vital Signs Temperature 98.1 F 04/22/23 09:50 Pulse Rate 84 04/22/23 09:50 Respiratory Rate 18 04/22/23 09:50 Blood Pressure 145/72 H 04/22/23 09:50 Pulse Oximetry 95 04/22/23 09:50 Oxygen Delivery Method Room Air 04/22/23 09:50 Temperature 98.1 F 04/22/23 09:50 Pulse Rate 84 04/22/23 09:50 Respiratory Rate 18 04/22/23 09:50 Blood Pressure 145/72 H 04/22/23 09:50 Pulse Oximetry 95 04/22/23 09:50 Oxygen Delivery Method Room Air 04/22/23 09:50 MDM - Male Genitourinary MDM Narrative Medical decision making narrative: 1. Hematuria-at this time urinalysis shows white cells and red cells but patient has no systemic signs of infection. He does admit to inadvertently a pulling on the Hendrickson catheter. He had not experienced hematuria before the past few days and actually notes that is improved today. We did insure that there was no urinary retention with a negative bladder scan. I spoke with Urology at [facility] in regards to this gentleman given the fact that he does have upcoming surgery on SundayApril 24 at. Normally I did explain that I would wait for a urine culture as most people with an indwelling catheter are certainly colonized but in this particular situation I felt that I would need to consult. Indeed, the urologist feels that we should placed Wei on prophylactic antibiotic. He has elected to use Keflex 500 mg p.o. b.i.d. x7 days. They have asked me to put this in [facility] which I do. 2. Disposition-Wei was allowed to depart home prior to my consult with Urology given the extreme dizziness in the ED today. I have just spoken with Wei on the phone. They will return for the medication. They should return also for fever chills vomiting and as needed. We will await the urine culture. Medical Records Attestation: I reviewed the patient's medical records. Lab Data Attestation: I reviewed the patient's lab results. Labs: Lab Results 04/22/23 Range/Units 10:29 Urine Color Yellow (Yellow) Urine Appearance Slightly Cloudy A (Clear) Urine pH 7.5 (5.0-8.5) Ur Specific Edna 1.020 (1.000-1.030) Urine Protein 2+ A (Negative) Urine Glucose (UA) Trace A (Negative) Urine Ketones Negative (Negative) Urine Blood 3+ A (Negative) Urine Nitrite Positive A (Negative) Urine Bilirubin Negative (Negative) Urine Urobilinogen 0.2 (0.2-1.0) Ur Leukocyte Esterase 3+ A (Negative) Urine RBC 25-50 A (0-2) Urine WBC 25-50 A (0-5) Ur Squamous Epith Cells Moderate A (None-Few) Urine Bacteria Many A (None) Urine Mucus Few A (None) Discharge Plan Discharge Clinical Impression: Hematuria Qualifiers: Hematuria type: unspecified type Qualified Code(s): R31.9 - Hematuria, unspecified Patient Disposition: Home, Self-Care Condition: Unchanged Additional Instructions: I will speak with Urology at [facility] and give you a call in regards to potential antibiotic use. Prescriptions: New cephalexin 500 mg capsule 500 mg PO BID 7 Days Qty: 14 0RF No Action atorvastatin 20 mg tablet 20 mg PO HS cetirizine 10 mg tablet 10 mg PO DAILY aspirin 81 mg tablet,delayed release (DR/EC) 81 mg PO DAILY metformin 1,000 mg tablet 1,000 mg PO BIDWM alfuzosin 10 mg tablet extended release 24 hr 10 mg PO DAILY cholecalciferol (vitamin D3) 1,250 mcg (50,000 unit) capsule 1,250 mcg PO .MO,TH@09 albuterol sulfate [Ventolin HFA] 90 mcg/actuation HFA aerosol inhaler 1 - 2 puff INHALATION Q4H PRN carvedilol 6.25 mg tablet 6.25 mg PO BID Patient Comments: NEW, STARTED 12/13/22 Rx Instructions: must administer with a meal/food fluticasone propionate [24 Hour Allergy Relief] 50 mcg/actuation spray,suspension 1 spray intranasal BID PRN Rx Instructions: administer into each nostril losartan 25 mg tablet 25 mg PO DAILY Patient Comments: STARTED IN CLINIC 12/13/22 polyethylene glycol 3350 [ClearLax] 17 gram/dose powder 17 g PO DAILY tamsulosin [Flomax] 0.4 mg capsule 0.4 mg PO DAILY Patient Comments: STARTED 12/13/22 IN CLINIC Follow Up/Referrals: Tino Morales MD [Primary Care Provider] - Stand Alone Forms: [employer] Info Instructions
[2023-04-22 10:35] LABS: Appearance Urine Slightly Cloudy (Clear); Bilirubin Urine Negative (Negative); Blood Urine 3+ (Negative); Color Urine Yellow (Yellow); Glucose Urine Trace (Negative); Ketones Urine Negative (Negative); Leukocyte Esterase Urine 3+ (Negative); Nitrite Urine Positive (Negative); Protein Urine 2+ (Negative); Urobilinogen Urine 0.2 (0.2-1.0); pH Urine 7.5 (5.0-8.5)
[2023-04-22 10:45] LABS: Bacteria Urine Many; Mucus Urine Few; RBC Urine 25-50 (0-2); Squamous Epithelial Cell Urine Moderate (None-Few); WBC Urine 25-50 (0-5)
--- NOTE | 2023-04-22 10:49 | ED.NURSE ---
Urine for UA obtained from [facility] after clamping.
== END 2023-04-22 11:39 | disposition home or self-care (01) ==
PROVIDERS: Emergency Provider Family Medicine; PCP Family Medicine
DX: R31.9 Hematuria, unspecified (principal)
CPT/HCPCS: 51798; 81001; 87086; 87186; 99284

== ENCOUNTER 2023-07-18 07:28 | Emergency (ER) | payer OTHER, SELFPAY ==
[2023-07-18 07:31] VITALS: BP 123/74; PULSE 101; RESP 18; TEMP 36.6; O2SAT 93; BMI 34.6
--- NOTE | 2023-07-18 08:06 | ED_ITS ---
HPI - General Adult General Chief complaint: Diabetic Related Problem Stated complaint: high blood sugar Time Seen by Provider: 07/18/23 07:43 History of Present Illness HPI narrative: This 62-year-old male comes in with his because of elevated blood glucose. He does have a history of diabetes and has been on metformin in the past. Currently he is not taking any glucose lowering medications. He had a prostate problem a few months ago and during that time he was in renal failure. He is not on dialysis but does have ongoing renal insufficiency. He states that he has not been back to his doctor since having a surgery on his prostate about 3 months ago. He measured blood glucose in the 300 range twice this morning. He states that he has been under more stress recently. Related Data Home Medications Medication Instructions Recorded Confirmed albuterol sulfate 90 mcg/actuation 1 - 2 puff inhalation Q4H PRN 12/14/22 07/18/23 aerosol inhaler (Ventolin HFA) alfuzosin 10 mg tablet,extended 10 mg PO DAILY 12/14/22 07/18/23 release 24 hr aspirin 81 mg tablet,delayed 81 mg PO DAILY 12/14/22 07/18/23 release atorvastatin 20 mg tablet 20 mg PO HS 12/14/22 07/18/23 carvedilol 6.25 mg tablet 6.25 mg PO BID 12/14/22 07/18/23 cetirizine 10 mg tablet 10 mg PO DAILY 12/14/22 07/18/23 cholecalciferol (vitamin D3) 1,250 1,250 mcg PO .MO,TH@09 12/14/22 07/18/23 mcg (50,000 unit) capsule fluticasone propionate 50 1 spray intranasal BID PRN 12/14/22 07/18/23 mcg/actuation nasal spray,suspension (24 Hour Allergy Relief) losartan 25 mg tablet 25 mg PO DAILY 12/14/22 07/18/23 metformin 1,000 mg tablet 1,000 mg PO BIDWM 12/14/22 07/18/23 polyethylene glycol 3350 17 17 g PO DAILY 12/14/22 12/14/22 gram/dose oral powder (ClearLax) tamsulosin 0.4 mg capsule (Flomax) 0.4 mg PO DAILY 12/14/22 07/18/23 Previous Rx's Medication Instructions Recorded glipizide 5 mg tablet, extended 5 mg PO DAILY #30 tabs 07/18/23 release 24 hr (Glucotrol XL) Allergies Allergy/AdvReac Type Severity Reaction Status Date / Time No Known Drug Allergies Allergy Verified 07/18/23 07:36 Review of Systems Status of ROS: Reports: 10 or more systems reviewed and unremarkable except as noted in History and below Narrative: Constitutional: No fevers, no weight gain or loss. Eyes: No discharge. No vision changes. HENT: No congestion, no sore throat, no ear pain. Cardiovascular: No chest pain, no palpitations. Respiratory: No shortness of breath, no wheezes, no cough. Gastrointestinal: No abdominal pain, no vomiting, no diarrhea. Genitourinary: No dysuria, no hematuria. Musculoskeletal: Normal range of motion. Skin: No rashes, no pruritis. Neurological: No dizziness, weakness, sensory change, speech change. Endo/Heme/Allergies: No bruising or bleeding. No polydipsia. Pysch: no suicidality, no anxiety, no insomnia. All other systems reviewed and are negative. [facility] Medical History HFimpEF, currently with mildly reduced EF ?I50.22 - Chronic systolic (congestive) heart failure (ICD-10) Adenomatous colon polyp ?D12.6 - Benign neoplasm of colon, unspecified (ICD-10) Type 2 diabetes mellitus ?E11.9 - Type 2 diabetes mellitus without complications (ICD-10) Basal cell carcinoma (BCC) of eyebrow ?C44.319 - Basal cell carcinoma of skin of other parts of face (ICD-10) Social History What is your current living situation?: I presently have a place to live Problems where you live: no known problems Problems where you live details: N/A In the past 12 months, utilities in danger of being shut off: no In past 12 months, lack of transportation kept you from medical appts, meetings, work, or getting things needed for daily living: no In the past 12 mos, have been you worried that your food would run out before yo u had money to buy more?: never true In the past 12 mos, the food you bought just didn't last and you didn't have money to buy more?: never true Smoking Status: Current every day smoker What tobacco products do you use: cigarettes Smoking packs per day: 1 Smoking cigarettes per day: 20.0 Do you use any of these nicotine containing products: None How often do you have a drink containing alcohol: never AUDIT-C Alcohol total score: 0 Non-prescribed substance use: denies use Caffeine: Yes (pepsi) How often does anyone, including family, friends and others, physically hurt you : never How often does anyone, including family, friends and others, insult or talk down to you: never How often does anyone, including family, friends and others, threaten you with harm: never How often does anyone, including family, friends and others, scream or curse at you: rarely service: No Exam Narrative: Exam Narrative: Constitutional: Well-developed, well-nourished, no acute distress. HEENT: Normocephalic, atraumatic. Neck: Normal range of motion. Nontender. Supple. Heart: Intact distal pulses. Lungs: No chest discomfort. No wheezes, rhonchi, or rales. Abdomen: Nontender. Back: Normal range of motion. Extremities: Normal range of motion. No injury. Skin: Intact. No rash. Warm. No erythema or pallor. Neurologic: No altered sensation. No weakness. Alert and oriented. Psychiatric: No suicidality. No anxiety or depression. No insomnia. Nursing notes and vitals signs are reviewed. Const: Vital Signs, click to edit/add: Vital Signs - 24 hr 07/18/23 07:31 Temperature 97.8 F Pulse Rate [Pulse Oximeter] 101 H Respiratory Rate 18 Blood Pressure [Ri ght Upper Arm] 123/74 Pulse Oximetry 93 Oxygen Delivery Me thod Room Air Course Vital Signs Vital signs: Initial Vital Signs Temperature 97.8 F 07/18/23 07:31 Temperature Source Temporal Artery Scan 07/18/23 07:31 Pulse Rate 101 H 07/18/23 07:31 Respiratory Rate 18 07/18/23 07:31 Blood Pressure 123/74 07/18/23 07:31 Blood Pressure Mean 90 07/18/23 07:31 Blood Pressure Position Sitting 07/18/23 07:31 Pulse Oximetry 93 07/18/23 07:31 Oxygen Delivery Method Room Air 07/18/23 07:31 Vital Signs Temperature 97.8 F 07/18/23 07:31 Pulse Rate 101 H 07/18/23 07:31 Respiratory Rate 18 07/18/23 07:31 Blood Pressure 123/74 07/18/23 07:31 Pulse Oximetry 93 07/18/23 07:31 Oxygen Delivery Method Room Air 07/18/23 07:31 Temperature 97.8 F 07/18/23 07:31 Pulse Rate 101 H 07/18/23 07:31 Respiratory Rate 18 07/18/23 07:31 Blood Pressure 123/74 07/18/23 07:31 Pulse Oximetry 93 07/18/23 07:31 Oxygen Delivery Method Room Air 07/18/23 07:31 Medications Administered Medications: Discontinued Medications Generic Name Dose Route Start Last Admin Trade Name River PRN Reason Stop Dose Admin Insulin Human Regular 6 unit 07/18/23 08:06 07/18/23 08:13 Insulin Regular 100 Unit/Ml Inj SUBCUT 07/18/23 08:07 6 unit ONCE ONE Administration Medical Decision Making MDM Narrative Medical decision making narrative: This patient comes in with report of elevated blood glucose. Glucometer check upon arrival here showed a glucose level of 315. This patient is not taking any medications currently for treating his diabetes. He does have renal insufficiency. I did review previous notes but did not have any access to his primary physicians notes. It appears that metformin was discontinued because of his renal insufficiency. I explained basic facts about diabetes to the patient and his . It seems that he has rather poor insight about these matters and is not attending to his health in this regard. The patient did receive a 6 unit dose of regular insulin here. Glucometer was recheck after 20 or 30 minutes with a value of 336. I did also prescribe Glucotrol XL at 5 mg daily. I explained that the true emergency is low glucose and we want him to follow up with his primary physician who can titrate medications to manage his glucose more accurately. Lab Data Labs: Lab Results 07/18/23 Range/Units 08:20 POC Glucose 336 H (60-115) mg/dl Discharge Plan Discharge Clinical Impression: Type 2 diabetes mellitus Patient Disposition: Home, Self-Care Condition: Stable Instructions: Diabetes and Nutrition (ED), Type 2 Diabetes Management for Adults (ED) Additional Instructions: Take medication as prescribed. Follow up with primary physician as soon as possible to manage blood glucose. Return if worsening symptoms happen. Prescriptions: New glipizide [Glucotrol XL] 5 mg tablet extended release 24hr 5 mg PO DAILY Qty: 30 0RF No Action atorvastatin 20 mg tablet 20 mg PO HS cetirizine 10 mg tablet 10 mg PO DAILY aspirin 81 mg tablet,delayed release (DR/EC) 81 mg PO DAILY metformin 1,000 mg tablet 1,000 mg PO BIDWM alfuzosin 10 mg tablet extended release 24 hr 10 mg PO DAILY cholecalciferol (vitamin D3) 1,250 mcg (50,000 unit) capsule 1,250 mcg PO .MO,TH@09 albuterol sulfate [Ventolin HFA] 90 mcg/actuation HFA aerosol inhaler 1 - 2 puff INHALATION Q4H PRN carvedilol 6.25 mg tablet 6.25 mg PO BID Patient Comments: NEW, STARTED 12/13/22 Rx Instructions: must administer with a meal/food fluticasone propionate [24 Hour Allergy Relief] 50 mcg/actuation spray,suspension 1 spray intranasal BID PRN Rx Instructions: administer into each nostril losartan 25 mg tablet 25 mg PO DAILY Patient Comments: STARTED IN CLINIC 12/13/22 polyethylene glycol 3350 [ClearLax] 17 gram/dose powder 17 g PO DAILY tamsulosin [Flomax] 0.4 mg capsule 0.4 mg PO DAILY Patient Comments: STARTED 12/13/22 IN CLINIC Follow Up/Referrals: Tino Morales MD [Primary Care Provider] - Stand Alone Forms: [employer] Info Instructions
[2023-07-18 08:46] LABS: Glucose, Point-of-Care* 336 mg/dl (60-115)
== END 2023-07-18 09:05 | disposition home or self-care (01) ==
LOC: ED 08:21
PROVIDERS: Emergency Provider Emergency Medicine Emergency Medical Services; PCP Family Medicine
DX: E11.65 Type 2 diabetes mellitus with hyperglycemia (principal)
CPT/HCPCS: 82947; 82962; 99284

== ENCOUNTER 2024-02-01 09:10 | Outpatient (CLI) | payer OTHER, SELFPAY ==
--- NOTE | 2024-02-01 11:04 | W.ANESCHARGE ---
Anesthesia Charges Start Date/Time Anesthesia Start Date: 02/01/24 Anesthesia Start Time: 11:51 Stop Date/Time Anesthesia Stop Date: 02/01/24 Anesthesia Stop Time: 12:10
--- NOTE | 2024-02-01 12:12 | W.ANESCHARGE ---
Anesthesia Charges Start Date/Time Anesthesia Start Date: 02/01/24 Anesthesia Start Time: 11:51 Stop Date/Time Anesthesia Stop Date: 02/01/24 Anesthesia Stop Time: 12:10
== END 2024-02-01 09:11 | disposition home or self-care (01) ==
LOC: OP CLINIC 09:11
PROVIDERS: PCP Family Medicine; Visit Provider Internal Medicine Gastroenterology
DX: Z12.11 Encounter for screening for malignant neoplasm of colon (principal); Z86.0101 Personal history of adenomatous and serrated colon polyps
CPT/HCPCS: 00811; 00812; 45378; J2704